=== PATIENT | female | born 1985 | race Two or more races ===

== ENCOUNTER 2022-11-23 08:50 | Day surgery (SDC) | payer OTHER ==
[~2022-11-23 08:50] MED LIST: B12 ACTIVE1000 MCG PO; D3 + K2 DOTS 11 EACH PO; SYNTHROID100 MCG PO
[2022-11-23] MEDS ORDERED: AMOX-CLAV 875-1 EACH PO (16:44)
[2022-11-23] MEDS ORDERED: AYR SALINE50 ML NASAL (16:44)
== END 2022-11-23 17:40 | disposition home or self-care (01) ==
LOC: CIR.AMB 08:50
PROVIDERS: ATTEND Otolaryngology Otology & Neurotology
DX: J34.2 Deviated nasal septum (principal); J34.3 Hypertrophy of nasal turbinates; Z20.822 Contact with and (suspected) exposure to COVID-19